=== PATIENT | female | born 1990 ===

== ENCOUNTER 2024-05-31 10:30 | Emergency (ER) | payer OTHER ==
[~2024-05-31] VITALS: Ht 160 cm; Wt 60.0 kg
[2024-05-31 11:26] VITALS: TEMP 97.6
[2024-05-31 12:35] LABS: BASOPHILS % (AUTO) 0.4 % (0.0-2.0); EOSINOPHILS % (AUTO) 0.5 % (1.0-6.0); HEMATOCRIT 45.8 % (36-46); LYMPHOCYTES # (AUTO) 2.1 K/uL (1.0-4.8); LYMPHOCYTES % (AUTO) 20.2 % (22.0-44.0); MEAN CORPUSCULAR HGB CONC 32.9 G/dL (31.0-37.0); MEAN CORPUSCULAR VOLUME 88 fL (80-100); MONOCYTES # (AUTO) 0.5 K/uL (0.1-1.0); MONOCYTES % (AUTO) 4.7 % (2.0-9.0); NEUTROPHILS # (AUTO) 7.6 K/uL (1.8-7.7); NEUTROPHILS % (AUTO) 74.2 % (40.0-70.0); RED BLOOD CELL COUNT(AUTO) 5.19 MIL/uL (4.00-5.20); WHITE BLOOD COUNT (AUTO) 10.2 K/uL (4.5-11.0)
[2024-05-31 12:37] LABS: ANION GAP 9 mmol/L (8-16); CALCIUM, TOTAL 9.2 mg/dL (8.8-10.5); CARBON DIOXIDE 26 mmol/L (22-29); CREATININE 0.57 mg/dL (0.60-1.30); GLOMERULAR FILTR. RATE CALC > 60 mL/min (>60); GLUCOSE,RANDOM 94 mg/dL (70-110); UREA NITROGEN, BLOOD 12 mg/dL (7-18)
[2024-05-31 12:39] LABS: CHLORIDE 101 mmol/L (98-107); SODIUM SERUM 136 mmol/L (136-145)
[2024-05-31 12:40] LABS: POTASSIUM 5.3 mmol/L (3.5-5.1)
[2024-05-31 13:06] LABS: ALCOHOL, URINE DRUG SCREEN NEGATIVE (NEGATIVE); AMPHET/METH SCREEN,URINE NEGATIVE (NEGATIVE); BARBITURATE SCREEN, URINE NEGATIVE (NEGATIVE); BENZODIAZEPINES SCREEN,URINE NEGATIVE (NEGATIVE); CANNABINOID SCREEN,URINE NEGATIVE (NEGATIVE); COCAINE SCREEN,URINE NEGATIVE (NEGATIVE); METHADONE SCREEN, URINE NEGATIVE (NEGATIVE); OPIATE SCREEN,URINE NEGATIVE (NEGATIVE); PHENCYCLIDINE SCREEN,URINE NEGATIVE (NEGATIVE)
[2024-05-31 13:07] LABS: PLATELET COUNT (AUTO) 253 K/uL (150-450)
[2024-05-31 13:40] VITALS: BP 118/88; PULSE 88; RESP 16; O2SAT 99
== END 2024-05-31 13:56 ==
LOC: EMS 10:34 → EDBD 10:34 → EMS 13:56
DX: Z02.89 Encounter for other administrative examinations (principal); Z72.89 Other problems related to lifestyle
CPT/HCPCS: 71045; 74176; 80048; 80307; 84703; 85025; 99284; 36415-L1; 36415-TC